=== PATIENT | female | born 1990 | race Two or more races ===

== ENCOUNTER 2020-09-07 16:29 | Emergency (ER) | payer MEDICAID ==
[~2020-09-07] VITALS: Ht 167.6 cm; Wt 71.0 kg
[2020-09-07 20:08] LABS: HCG SCREEN NEGATIVE
[2020-09-07] MEDS ORDERED: IBUP-2029 MT (22:17)
[2020-09-07] MEDS ORDERED: HYDROCODONE/ACETAMINOPHEN 5/325MG TABLET PO ONE (22:30)
[2020-09-07 22:37] VITALS: BP 125/50
== END 2020-09-07 22:39 | disposition home or self-care (01) ==
LOC: ER 16:29
DX: S92.422A Displaced fracture of distal phalanx of left great toe, initial encounter for closed fracture (principal); R68.84 Jaw pain; V87.8XXA Person injured in other specified noncollision transport accidents involving motor vehicle (traffic), initial encounter; Y93.89 Activity, other specified; Y92.488 Other paved roadways as the place of occurrence of the external cause
CPT/HCPCS: 29515; 70486; 73660; 81025; 84703; 99285

== ENCOUNTER 2020-11-13 16:41 | Emergency (ER) | payer MEDICAID ==
[~2020-11-13] VITALS: Ht 167.6 cm; Wt 66.0 kg
[~2020-11-13 16:41] MED LIST: CLIN300C12 MT; IBUP-2029 MT
[2020-11-13 19:19] LABS: CLARITY URINE CLEAR (CLEAR); COLOR URINE YELLOW (YELLOW); KETONES URINE 1+ (NEGATIVE); LEUKOCYTE ESTERASE URINE NEGATIVE (NEGATIVE); NITRITE URINE NEGATIVE (NEGATIVE); OCCULT BLOOD URINE NEGATIVE (NEGATIVE); PROTEIN URINE TRACE (NEGATIVE); SPECIFIC GRAVITY URINE 1.017 (1.005-1.030)
[2020-11-13 20:30] VITALS: BP 119/69
== END 2020-11-13 20:48 | disposition home or self-care (01) ==
LOC: ER 16:41
DX: O26.891 Other specified pregnancy related conditions, first trimester (principal); Z20.822 Contact with and (suspected) exposure to COVID-19; Z3A.01 Less than 8 weeks gestation of pregnancy; Z79.899 Other long term (current) drug therapy
CPT/HCPCS: 81003; 81025; 99283; C9803; U0003; U0005

== ENCOUNTER 2021-01-21 10:10 | Emergency (ER) | payer MEDICAID ==
[~2021-01-21] VITALS: Ht 167.6 cm; Wt 69.0 kg
[2021-01-21 12:10] LABS: CLARITY URINE CLOUDY (CLEAR); COLOR URINE YELLOW (YELLOW); KETONES URINE 4+ (NEGATIVE); LEUKOCYTE ESTERASE URINE TRACE (NEGATIVE); NITRITE URINE NEGATIVE (NEGATIVE); OCCULT BLOOD URINE NEGATIVE (NEGATIVE); PROTEIN URINE NEGATIVE (NEGATIVE); SPECIFIC GRAVITY URINE 1.023 (1.005-1.030); UROBILINOGEN URINE 0.2 E.U./dL (0.2-1.0)
[2021-01-21 14:52] LABS: BASOPHILS % 0.3 % (0.0-2.0); EOSINOPHILS % 0.9 % (0.0-5.0); HEMATOCRIT. 34.8 % (36.0-48.0); HEMOGLOBIN. 11.5 g/dL (12.0-16.0); LYMPHOCYTES % 15.1 % (20.0-50.0); MEAN CORPUSCULAR HEMOGLOBIN 27.1 pg (28.0-32.0); MEAN CORPUSCULAR VOLUME 82.3 fL (81.0-99.0); MEAN PLATELET VOLUME 9.2 fl (7.4-10.4); MONOCYTES % 3.9 % (2.0-8.0); NEUTROPHILS % 79.8 % (40.0-76.0); PLATELET 181 x1000/uL (130-400); RED BLOOD CELL COUNT 4.23 mill/uL (4.2-5.4); RED CELL DISTRIBUTION WIDTH 14.4 % (11.6-14.6)
[2021-01-21 14:58] LABS: CHLORIDE 108 mEq/L (98-107)
[2021-01-21 15:23] LABS: B-HCG QUANTITATIVE 6620 mIU/mL (<3)
[2021-01-21] MEDS ORDERED: CEPH250C2 MT (17:02)
[2021-01-21 17:42] VITALS: BP 113/56
== END 2021-01-21 17:43 | disposition home or self-care (01) ==
LOC: ER 10:10
DX: O20.9 Hemorrhage in early pregnancy, unspecified (principal); Z3A.19 19 weeks gestation of pregnancy
CPT/HCPCS: 36415; 76805; 80053; 81003; 84702; 85025; 99284

== ENCOUNTER 2021-06-05 08:39 | Inpatient (IN) | payer MEDICAID ==
[~2021-06-05] VITALS: Ht 167.6 cm; Wt 79.8 kg
[~2021-06-05 08:39] MED LIST changes: +CEPH250C2 MT
[2021-06-05] MEDS ORDERED: MORPHINE SULFATE/PF 1MG/ML 10ML AMP ONE (10:11)
[2021-06-05] MEDS ORDERED: PHENYLEPHRINE HCL 10 MG/ML 1ML (IV VIAL) IV ONE (10:11)
[2021-06-05] MEDS ORDERED: CITRIC ACID/SODIUM CITRATE SOLN 30ML UDC PO NR (10:15)
[2021-06-05] MEDS ORDERED: SODIUM CHLORIDE 0.9% 10ML VIAL ONE (10:16)
[2021-06-05] MEDS ORDERED: ONDANSETRON HCL 4MG/2ML INJ ONE (10:16)
[2021-06-05] MEDS ORDERED: OXYTOCIN 10 UNITS/ML 1ML ONE (10:16)
[2021-06-05] MEDS ORDERED: CEFAZOLIN SODIUM 1000MG/VIAL ONE (10:16)
[2021-06-05] MEDS ORDERED: DEXAMETHASONE 4MG/ML 1ML VIAL ONE (10:16)
[2021-06-05] MEDS ORDERED: LACTATED RINGERS 1,000 ML IV SCH (12:15)
[2021-06-05 12:36] LABS: CLARITY URINE CLOUDY (CLEAR); COLOR URINE YELLOW (YELLOW); KETONES URINE NEGATIVE (NEGATIVE); LEUKOCYTE ESTERASE URINE NEGATIVE (NEGATIVE); NITRITE URINE NEGATIVE (NEGATIVE); OCCULT BLOOD URINE NEGATIVE (NEGATIVE); PH URINE 6.5 (4.5-8.0); PROTEIN URINE NEGATIVE (NEGATIVE); SPECIFIC GRAVITY URINE 1.015 (1.005-1.030)
[2021-06-05 12:57] LABS: BASOPHILS % 0.3 % (0.0-2.0); EOSINOPHILS % 0.7 % (0.0-5.0); HEMATOCRIT. 33.3 % (36.0-48.0); HEMOGLOBIN. 11.1 g/dL (12.0-16.0); LYMPHOCYTES % 16.1 % (20.0-50.0); MEAN CORPUSCULAR HEMOGLOBIN 27.7 pg (28.0-32.0); MEAN CORPUSCULAR VOLUME 83.1 fL (81.0-99.0); MEAN PLATELET VOLUME 9.4 fl (7.4-10.4); MONOCYTES % 5.8 % (2.0-8.0); NEUTROPHILS % 77.1 % (40.0-76.0); PLATELET 141 x1000/uL (130-400); RED CELL DISTRIBUTION WIDTH 14.5 % (11.6-14.6)
[2021-06-05 13:10] LABS: *AMPHETAMINES SCREEN URINE NEGATIVE (NEGATIVE); *BARBITURATES SCREEN URINE NEGATIVE (NEGATIVE)
[2021-06-05 13:11] LABS: *BENZODIAZEPINES SCREEN URINE NEGATIVE (NEGATIVE); *COCAINE SCREEN URINE NEGATIVE (NEGATIVE); CANNABINOID URINE SCREEN NEGATIVE (NEGATIVE); METHADONE URINE SCREEN NEGATIVE (NEGATIVE); OPIATES URINE SCREEN NEGATIVE (NEGATIVE); PHENCYCLIDINE URINE SCREEN NEGATIVE (NEGATIVE)
[2021-06-05 13:24] LABS: INR 0.9; PARTIAL THROMBOPLASTIN TIME 25.9 sec (23.4-31.0); PROTHROMBIN TIME 9.9 sec (9.6-11.0)
[2021-06-05 14:10] LABS: HEPATITIS B SURFACE ANTIGEN NEGATIVE
[2021-06-05] MEDS ORDERED: EPHEDRINE SULFATE 50MG/ML VIAL ONE (19:00)
[2021-06-05] MEDS ORDERED: KETOROLAC 30MG/ML VIAL IV PRN (20:15)
[2021-06-05] MEDS ORDERED: NALOXONE HCL 0.4 MG/ML 1ML VIAL IV PRN (20:15)
[2021-06-05] MEDS ORDERED: KETOROLAC 60MG/2ML VIAL IM ONE (20:28)
[2021-06-05] MEDS ORDERED: ONDANSETRON HCL 4MG/2ML INJ IV PRN (21:30)
[2021-06-05 22:30] VITALS: BP 112/56
[2021-06-05] MEDS ORDERED: METOCLOPRAMIDE HCL 10MG/2ML VIAL IV PRN (22:45)
[2021-06-06] VITALS: BP 115/53
[2021-06-06] MEDS: DEXT 5%/LR + PITOCIN 20UNITS/L 1,000 ML IV SCH ×2 (01:29→09:51)
[2021-06-06] MEDS ORDERED: MEASLES,MUMPS&RUBELLA VACCINE 1 VIAL SUBCUT ONE (06:00)
[2021-06-06 06:56] LABS: HEMATOCRIT. 27.3 % (36.0-48.0); HEMOGLOBIN. 9.4 g/dL (12.0-16.0); MEAN CORPUSCULAR VOLUME 81.5 fL (81.0-99.0); MEAN PLATELET VOLUME 9.6 fl (7.4-10.4); PLATELET 128 x1000/uL (130-400); RED BLOOD CELL COUNT 3.35 mill/uL (4.2-5.4)
[2021-06-06 06:57] LABS: CHLORIDE 105 mEq/L (98-107)
[2021-06-06 07:30] VITALS: BP 102/44
[2021-06-06 09:02] LABS: PLATELET ESTIMATE SLIGHTLY DECREASED
[2021-06-06 16:00] VITALS: BP 91/41
[2021-06-06 19:30] VITALS: BP 106/46
[2021-06-06] MEDS ORDERED: RHO(D) IMMUNE GLOBULIN 300 MCG/SYR IM PRN (19:45)
[2021-06-06] MEDS ORDERED: HEMORRHOIDAL SUPP PR PRN (19:45)
[2021-06-06] MEDS ORDERED: BISACODYL 10MG SUPP PR PRN (19:45)
[2021-06-06] MEDS ORDERED: LANOLIN OINT 7GM TUBE TOP PRN (19:45)
[2021-06-06] MEDS ORDERED: ACETAMINOPHEN WITH CODEINE 300/30MG TABLET PO PRN (19:45)
[2021-06-06] MEDS ORDERED: IBUPROFEN 400MG TABLET PO PRN (19:45)
[2021-06-06] MEDS ORDERED: ONDANSETRON HCL 4MG/2ML INJ IV PRN (19:45)
[2021-06-06] MEDS: MAGNESIUM/ALUMINUM HYDROXIDE/SIMETHICONE 30ML UDC PO SCH (20:45)
[2021-06-06] MEDS: DOCUSATE SODIUM 100MG CAPSULE PO SCH (20:45)
[2021-06-06] MEDS: SIMETHICONE 80MG TABLET CHEW PO SCH (20:48)
[2021-06-06] MEDS: IBUPROFEN 800MG TABLET PO PRN (20:49)
[2021-06-06] MEDS ORDERED: DIPHENHYDRAMINE 25MG CAPSULE PO PRN (21:00)
[2021-06-07 04:00] VITALS: BP 104/55
[2021-06-07 07:24] LABS: HEMATOCRIT. 26.8 % (36.0-48.0); HEMOGLOBIN. 9.2 g/dL (12.0-16.0); RED BLOOD CELL COUNT 3.26 mill/uL (4.2-5.4)
[2021-06-07 07:25] LABS: BASOPHILS % 0.2 % (0.0-2.0); EOSINOPHILS % 0.6 % (0.0-5.0); MEAN CORPUSCULAR HEMOGLOBIN 28.2 pg (28.0-32.0); MEAN CORPUSCULAR VOLUME 82.2 fL (81.0-99.0); MEAN PLATELET VOLUME 9.5 fl (7.4-10.4); MONOCYTES % 6.3 % (2.0-8.0); NEUTROPHILS % 75.9 % (40.0-76.0); PLATELET 133 x1000/uL (130-400); RED CELL DISTRIBUTION WIDTH 14.4 % (11.6-14.6)
[2021-06-07 08:40] VITALS: BP 102/51
[2021-06-07] MEDS: MAGNESIUM/ALUMINUM HYDROXIDE/SIMETHICONE 30ML UDC PO SCH ×3 (09:00→21:00)
[2021-06-07] MEDS: FERROUS SULFATE 325MG TABLET PO SCH ×2 (09:04→18:34)
[2021-06-07] MEDS: SIMETHICONE 80MG TABLET CHEW PO SCH ×3 (09:04→21:00)
[2021-06-07] MEDS: PRENATAL VIT/FE FUMARATE/FA TABLET PO SCH (09:04)
[2021-06-07] MEDS: IBUPROFEN 800MG TABLET PO PRN ×2 (09:09→18:35)
[2021-06-07 16:40] VITALS: BP 107/41
[2021-06-07] MEDS: DOCUSATE SODIUM 100MG CAPSULE PO SCH (21:00)
[2021-06-07 21:42] VITALS: BP 109/42
[2021-06-08 00:55] VITALS: BP 100/49
[2021-06-08 04:41] VITALS: BP 109/56
[2021-06-08] MEDS ORDERED: FERR-63 PO (06:01)
[2021-06-08] MEDS: SIMETHICONE 80MG TABLET CHEW PO SCH (09:13)
[2021-06-08] MEDS: IBUPROFEN 800MG TABLET PO PRN (09:13)
[2021-06-08] MEDS: MAGNESIUM/ALUMINUM HYDROXIDE/SIMETHICONE 30ML UDC PO SCH (09:13)
[2021-06-08] MEDS: PRENATAL VIT/FE FUMARATE/FA TABLET PO SCH (09:14)
[2021-06-08] MEDS: FERROUS SULFATE 325MG TABLET PO SCH (09:14)
[2021-06-08 11:00] VITALS: BP 110/60
== END 2021-06-08 12:20 | disposition home or self-care (01) | DRG 540 ==
LOC: 8 EST LDRP 08:39 → OBSVTOIN 08:40 → 8EST 22:31
PROVIDERS: ADMIT Obstetrics & Gynecology; ATTEND Obstetrics & Gynecology
PROC: 10D00Z1 Extraction of Products of Conception, Low, Open Approach (ICD-10-PCS; principal; 2021-06-05)
DX: O34.211 Maternal care for low transverse scar from previous cesarean delivery (principal); D69.6 Thrombocytopenia, unspecified; D62 Acute posthemorrhagic anemia; O99.12 Other diseases of the blood and blood-forming organs and certain disorders involving the immune mechanism complicating childbirth; O99.02 Anemia complicating childbirth; Z37.0 Single live birth; Z3A.38 38 weeks gestation of pregnancy; D72.829 Elevated white blood cell count, unspecified; Z20.822 Contact with and (suspected) exposure to COVID-19
CPT/HCPCS: 36415; 80048; 80305; 81003; 85025; 86592; 86703; 86762; 86850; 86900; 86920; 87340; 87426; 88307; 90707; 99281; G0378; J0690; J1100; J1885; J2274; J2370; J2405; J2590; J2765; J3490; J7120